=== PATIENT | female | born 1975 | race Caucasian/White ===

== ENCOUNTER 2017-12-24 13:52 | Emergency (ER) | payer OTHER, SELFPAY | END 2017-12-24 14:44 | disposition home or self-care (01) | LOC: NAV ERS 13:52 | DX: R21 Rash and other nonspecific skin eruption (principal); E66.9 Obesity, unspecified; F17.210 Nicotine dependence, cigarettes, uncomplicated | CPT/HCPCS: 99283 ==

== ENCOUNTER 2019-11-02 08:09 | Emergency (ER) | payer SELFPAY ==
[2019-11-02] MEDS ORDERED: Ipratropium Bromide 2.5 ml Neb ONE (08:45)
[2019-11-02] MEDS ORDERED: Albuterol Sulfate 2.5 mg/0.5 ml Neb ONE (08:46)
[2019-11-02] MEDS ORDERED: Oxymetazoline HCl 0.05% (30 ML BOT) ONE (08:46)
[2019-11-02 09:17] LABS: #Basophils 0.1 thou/uL (0.0-0.2); #Eosinphils 0.2 thou/uL (0.0-0.7); #Lymphocytes 2.5 thou/uL (1.20-3.40); #Monocytes 0.6 thou/uL (0.11-0.59); #Neutrophils 8.2 thou/uL (1.40-6.50); %Basophils 0.6 % (0.0-1.0); %Eosinophils 1.6 % (0.0-10.0); %Lymphocytes 21.5 % (21.0-51.0); %Monocytes 5.6 % (0.0-10.0); %Neutrophils 70.8 % (42.0-75.0); Mean Corpuscular HGB CONC 30.7 g/dL (32.0-36.0); Mean Corpuscular Hemoglobin 27.3 pg (27.0-31.0); Mean Corpuscular Volume 88.9 fL (78.0-98.0); Mean Platelet Volume 6.8 fL (7.4-10.4); Platelet Count 335 thou/uL (130-400); RBC Distribution Width 13.8 % (11.5-14.5); Red Blood Cell (RBC) Count 4.76 mill/uL (4.20-5.40); White Blood Cell (WBC) Count 11.6 thou/uL (4.8-10.8)
[2019-11-02 09:27] LABS: Anion Gap 13 mmol/L (10-20); BUN (Urea Nitrogen) 10 mg/dL (7.0-18.7); Calc. Creatinine Clearance 0 mL/min (70-130); Carbon Dioxide 30 mmol/L (22-29); Chloride 101 mmol/L (98-107); Estimated GFR-MDRD Greater than 90; Glucose 98 mg/dL (70-105); Potassium 4.4 mmol/L (3.5-5.1); Sodium 140 mmol/L (136-145)
--- NOTE | 2019-11-02 09:29 | RAD ---
2 VIEWS CHEST: Date: 11/02/2019 PROVIDED CLINICAL HISTORY: Cough, congestion, and shortness of breath. FINDINGS: Comparison is made with the study dated 05/25/2016. Evaluation is limited due to patient body habitus. The cardiac silhouette appears enlarged. There is prominence of the pulmonary vasculature and pulmonary interstitium. Right medial basilar parenchymal opacity is suspected. There is no pleural fluid or pneumothorax apparent. IMPRESSION: 1. Cardiomegaly and pulmonary vascular congestion, suggesting congestive failure. 2. Parenchymal opacity at the medial right lung base. Correlate with concerns for pneumonia. Follow- up recommended. POS: [facility]
== END 2019-11-02 09:50 | disposition home or self-care (01) ==
LOC: NAV ERS 08:09
DX: J44.1 Chronic obstructive pulmonary disease with (acute) exacerbation (principal); J18.9 Pneumonia, unspecified organism; E66.9 Obesity, unspecified; F17.210 Nicotine dependence, cigarettes, uncomplicated; Z79.84 Long term (current) use of oral hypoglycemic drugs
CPT/HCPCS: 71046; 80048; 85025; 94640; J7611

== ENCOUNTER 2021-02-04 15:11 | Emergency (ER) | payer MEDICAID, OTHER ==
[2021-02-04] MEDS ORDERED: Furosemide 20 MG/2 ML VIAL ONE (15:52)
[2021-02-04 16:08] LABS: Bilirubin Negative (Negative); Blood, Urine Negative (Negative); Glucose, Urine (Dipstick) Negative (Negative); Ketone, Urine Negative (Negative); Leukocyte Negative (Negative); Nitrite Negative (Negative); Protein, Urine (Dipstick) Negative (Neg-Trace); pH, Urine 7.5 (5.0-9.0)
[2021-02-04 16:10] LABS: Clarity SL HAZY (Clear)
[2021-02-04 16:11] LABS: Pregnancy Test - Urine (BHCG) Negative (Negative); Pregu Control Background? CLEAR/WHITE (CLR/WHITE); Pregu Control Bar Appear? YES (CONTROL BAR)
[2021-02-04 16:15] LABS: #Basophils 0.1 thou/uL (0.0-0.2); #Eosinphils 0.2 thou/uL (0.0-0.7); #Monocytes 0.7 thou/uL (0.11-0.59); #Neutrophils 8.4 thou/uL (1.40-6.50); %Basophils 0.8 % (0.0-1.0); %Eosinophils 1.4 % (0.0-10.0); %Lymphocytes 24.2 % (21.0-51.0); %Monocytes 5.5 % (0.0-10.0); %Neutrophils 68.1 % (42.0-75.0); Hemoglobin 15.6 g/dL (12.0-16.0); Mean Corpuscular HGB CONC 27.3 g/dL (32.0-36.0); Mean Corpuscular Volume 95.3 fL (78.0-98.0); Mean Platelet Volume 6.6 fL (7.4-10.4); Platelet Count 344 thou/uL (130-400); RBC Distribution Width 15.9 % (11.5-14.5); White Blood Cell (WBC) Count 12.3 thou/uL (4.8-10.8)
[2021-02-04 16:29] LABS: ALT (SGPT) 68 U/L (8-55); AST (SGOT) 31 U/L (5-34); Albumin 3.9 g/dL (3.5-5.0); Alkaline Phosphatase 113 U/L (40-110); Anion Gap 16 mmol/L (10-20); BUN (Urea Nitrogen) 8 mg/dL (7.0-18.7); Bilirubin, Total 0.5 mg/dL (0.2-1.2); Calc. Creatinine Clearance 0 mL/min (70-130); Calcium 8.9 mg/dL (7.8-10.44); Carbon Dioxide 31 mmol/L (22-29); Chloride 99 mmol/L (98-107); Glucose 114 mg/dL (70-105); Potassium 4.5 mmol/L (3.5-5.1); Protein, Total 6.9 g/dL (6.0-8.3); Sodium 141 mmol/L (136-145)
[2021-02-04] MEDS ORDERED: cloNIDine 0.2 MG TAB ONE (16:43)
== END 2021-02-04 19:05 | disposition home or self-care (01) ==
LOC: NAV ERS 15:11
DX: R60.0 Localized edema (principal); E11.9 Type 2 diabetes mellitus without complications; J44.9 Chronic obstructive pulmonary disease, unspecified; Z87.891 Personal history of nicotine dependence
CPT/HCPCS: 36416; 71046; 80053; 81003; 81025; 83880; 84443; 84484; 85025; 85379; 93005; 96374; J1940

== ENCOUNTER 2021-05-07 09:03 | Emergency (ER) | payer OTHER ==
[2021-05-07] MEDS ORDERED: Acetaminophen 325 MG TAB ONE (09:48)
[2021-05-07] MEDS ORDERED: Sodium Chloride 0.9% 1,000 ML ONE (09:49)
[2021-05-07 10:21] LABS: #Basophils 0.1 thou/uL (0.0-0.2); #Lymphocytes 1.5 thou/uL (1.20-3.40); #Monocytes 0.6 thou/uL (0.11-0.59); #Neutrophils 6.6 thou/uL (1.40-6.50); %Basophils 0.8 % (0.0-1.0); %Eosinophils 0.1 % (0.0-10.0); %Lymphocytes 16.9 % (21.0-51.0); %Monocytes 6.9 % (0.0-10.0); %Neutrophils 75.3 % (42.0-75.0); Hemoglobin 15.3 g/dL (12.0-16.0); Mean Corpuscular HGB CONC 28.7 g/dL (32.0-36.0); Mean Corpuscular Hemoglobin 26.2 pg (27.0-31.0); Mean Corpuscular Volume 91.5 fL (78.0-98.0); Mean Platelet Volume 6.9 fL (7.4-10.4); Platelet Count 220 thou/uL (130-400); RBC Distribution Width 16.7 % (11.5-14.5); Red Blood Cell (RBC) Count 5.85 mill/uL (4.20-5.40); White Blood Cell (WBC) Count 8.7 thou/uL (4.8-10.8)
[2021-05-07 10:31] LABS: ALT (SGPT) 29 U/L (8-55); AST (SGOT) 22 U/L (5-34); Albumin 3.7 g/dL (3.5-5.0); Alkaline Phosphatase 78 U/L (40-110); Anion Gap 14 mmol/L (10-20); BUN (Urea Nitrogen) 11 mg/dL (7.0-18.7); Bilirubin, Total 0.5 mg/dL (0.2-1.2); Calc. Creatinine Clearance 0 mL/min (70-130); Calcium 9.5 mg/dL (7.8-10.44); Carbon Dioxide 30 mmol/L (22-29); Chloride 99 mmol/L (98-107); Globulin 3.3 g/dL (2.4-3.5); Glucose 110 mg/dL (70-105); Potassium 4.2 mmol/L (3.5-5.1); Sodium 139 mmol/L (136-145)
[2021-05-07] MEDS ORDERED: Ventolin HFA Inhaler 60 PUFF INHALER ONE (10:55)
[2021-05-08 02:02] LABS: SARS-CoV-2 PCR by NAA DETECTED (NotDetected)
== END 2021-05-07 12:35 | disposition home or self-care (01) ==
LOC: NAV ERS 09:03
DX: U07.1 COVID-19 (principal); E11.9 Type 2 diabetes mellitus without complications; J44.9 Chronic obstructive pulmonary disease, unspecified; Z87.891 Personal history of nicotine dependence; Z79.84 Long term (current) use of oral hypoglycemic drugs
CPT/HCPCS: 71046; 80053; 83605; 84484; 85025; 93005; J7050; U0003; U0005

== ENCOUNTER 2021-05-10 22:17 | Emergency (ER) | payer MEDICAID, OTHER ==
[2021-05-10] MEDS ORDERED: Norepinephrine 4 MG/4 ML VIAL ONE ×2 (22:41→22:47)
[2021-05-10 23:06] LABS: Albumin 3.1 g/dL (3.5-5.0); Alkaline Phosphatase 109 U/L (40-110); Anion Gap 41 mmol/L (10-20); BUN (Urea Nitrogen) 28 mg/dL (7.0-18.7); Bilirubin, Total 1.4 mg/dL (0.2-1.2); Calc. Creatinine Clearance 0 mL/min (70-130); Calcium 9.3 mg/dL (7.8-10.44); Carbon Dioxide 15 mmol/L (22-29); Chloride 98 mmol/L (98-107); Glucose 62 mg/dL (70-105); Potassium 6.5 mmol/L (3.5-5.1); Protein, Total 6.1 g/dL (6.0-8.3); Sodium 147 mmol/L (136-145)
[2021-05-10 23:07] LABS: Band 8 % (5-11); Hemoglobin 14.5 g/dL (12.0-16.0); Lymphocytes 25 % (21-51); MDiff Complete? YES; Mean Corpuscular Hemoglobin 27.1 pg (27.0-31.0); Mean Corpuscular Volume 96.8 fL (78.0-98.0); Mean Platelet Volume 7.4 fL (7.4-10.4); Monocytes 8 % (0-10); Neutrophil 59 % (42-75); Nucleated RBC 3 % (0); Platelet Count 82 thou/uL (130-400); Platelet Morphology Comment Appears Decreased; Poikilocytosis SLIGHT = 6-15 cells (100X) (0-5/hpf); Polychromasia SLIGHT = 2-3 cells (100X) (0-2/hpf); RBC Distribution Width 17.2 % (11.5-14.5); Red Blood Cell (RBC) Count 5.35 mill/uL (4.20-5.40); Spherocytes SLIGHT = 1-5 cells (100X) (None Seen); White Blood Cell (WBC) Count 21.3 thou/uL (4.8-10.8)
[2021-05-10 23:25] LABS: ALT (SGPT) Greater than 4100 U/L (8-55)
[2021-05-10] MEDS ORDERED: EPINEPHrine 1 MG/ML AMP ONE (23:26)
[2021-05-10] MEDS ORDERED: Dextrose 50% Abboject 50 ML SYRINGE ONE (23:27)
[2021-05-10] MEDS ORDERED: Dextrose 5% in Water 250 ML ONE (23:28)
[2021-05-10 23:30] LABS: CKMB 2.8 ng/mL (0-6.6)
[2021-05-10] MEDS ORDERED: INSULIN REGULAR IN 0.9 % NACL 100 UNIT/100 ML BAG ONE (23:36)
[2021-05-10 23:39] LABS: INR-International Normal Ratio 2.6; Prothrombin Time 28.2 sec (12.0-14.7)
[2021-05-10 23:40] LABS: PTT 50.1 sec (22.9-36.1)
[2021-05-10] MEDS ORDERED: Piperacillin/Tazobactam 3.375 GM VIAL ONE (23:53)
[2021-05-10] MEDS ORDERED: Pantoprazole 40 MG VIAL ONE (23:53)
[2021-05-10] MEDS ORDERED: Sodium Chloride 0.9% 250 ML 250 ML ONE (23:55)
[2021-05-10] MEDS ORDERED: Sodium Chloride 0.9% 100 ML ONE (23:55)
[2021-05-11 00:13] LABS: AST (SGOT) Greater than 3500 U/L (5-34)
[2021-05-11 00:24] LABS: Bilirubin Negative (Negative); Blood, Urine Negative (Negative); Clarity Slightly Cloudy (Clear); Glucose, Urine (Dipstick) Negative (Negative); Ketone, Urine Negative (Negative); Leukocyte Negative (Negative); Nitrite Negative (Negative); Protein, Urine (Dipstick) 100 mg/dL (Neg-Trace); Urobilinogen 0.2 mg/dL (Less than 2); pH, Urine 5.5 (5.0-9.0)
[2021-05-11 00:29] LABS: Pregnancy Test - Urine (BHCG) Negative (Negative); Pregu Control Background? CLEAR/WHITE (CLR/WHITE); Pregu Control Bar Appear? YES (CONTROL BAR); Specific Gravity 1.027 (1.002-1.036); Specific Gravity, Urine 1.027 (1.002-1.036)
[2021-05-11 00:31] LABS: Bacteria/HPF None Seen HPF (None Seen); Cocaine Metabolite Screen Not Detected (NotDetected); Methamphetamine Detected (NotDetected); Phencyclidine (PCP) Not Detected (NotDetected); RBC/HPF 0-3 HPF (0-3); THC/Cannabinoid Screen Not Detected (NotDetected); WBC/HPF None Seen HPF (0-3)
[2021-05-11 00:32] LABS: Amphetamine Not Detected (NotDetected); Barbiturates Screen Not Detected (NotDetected); Benzodiazepine Screen Not Detected (NotDetected); Medtox Control Line Valid? VALID (VALID); Methadone Not Detected (NotDetected); Opiate Screen Not Detected (NotDetected); Oxycodone Screen Not Detected (NotDetected); Tricyclic Screen Not Detected (NotDetected)
== END 2021-05-11 00:38 | disposition short-term general hospital (02) ==
LOC: NAV ERS 22:17
DX: I46.9 Cardiac arrest, cause unspecified (principal); A41.9 Sepsis, unspecified organism; R65.21 Severe sepsis with septic shock; J96.00 Acute respiratory failure, unspecified whether with hypoxia or hypercapnia; U07.1 COVID-19; J12.82 Pneumonia due to coronavirus disease 2019; N17.8 Other acute kidney failure; N17.9 Acute kidney failure, unspecified; E87.5 Hyperkalemia; Z87.891 Personal history of nicotine dependence
CPT/HCPCS: 31500; 36416; 51702; 71045; 80053; 80306; 81003; 81015; 81025; 82553; 83605; 84484; 85025; 85379; 85610; 85730; 92950; 93005; 94760; 96361; 96365; 96366; 96368; 96374; 96375; 36415-59; C9113; J0171; J2543; J3370; J3490; J7050; J7070